=== PATIENT | female | born 1975 | race Caucasian/White ===

== ENCOUNTER 2024-06-25 00:35 | Emergency (ER) | payer OTHER ==
[~2024-06-25] VITALS: Ht 165.1 cm; Wt 72.0 kg
[2024-06-25] MEDS ORDERED: LYRICA100 MG PO (01:10)
[2024-06-25] MEDS ORDERED: TIZANIDINE HCL4 M1 PO (01:10)
[2024-06-25] MEDS ORDERED: TRAMADOL HCL50 MG PO (01:11)
[2024-06-25] MEDS ORDERED: TRAZODONE HCL50 MG (01:12)
[2024-06-25] MEDS ORDERED: BUPROPION XL300 MG PO (01:12)
[2024-06-25] MEDS ORDERED: TOPIRAMATE50 MG PO (01:12)
[2024-06-25 01:13] LABS: BASOPHILS 0.7 % (0-2); EOSINOPHILS 2.1 % (0-6); HEMATOCRIT 36.2 % (35.0-50.0); HEMOGLOBIN 12.2 g/dL (12.0-18.0); LYMPHOCYTES 34.3 % (24-44); MCH 30.1 (27-36); MCHC 33.7 g/dl (30-36); MCV 89.5 fl (81-99); MONOCYTES 7.9 % (0-12); PLATELET COUNT 223 K/uL (140-440); RBC 4.04 M/ul (4.3-5.7)
[2024-06-25] MEDS ORDERED: VITAMIN B121000 MCG PO (01:13)
[2024-06-25] MEDS ORDERED: ZOLOFT25 MG PO (01:15)
[2024-06-25 01:21] LABS: ALBUMIN 3.8 g/dL (3.4-5.0); ALBUMIN/GLOBULIN RATIO 1.15 (1.1-2.4); ANION GAP 8.7 (7-21); BILIRUBIN, TOTAL 0.5 ng/dL (0.2-1.0); BUN/CREATININE RATIO 13.11 (6.0-28.6); CALCIUM 8.8 mg/dL (8.5-10.1); CREATININE, SERUM 1.22 mg/dL (0.55-1.02); POTASSIUM 2.7 mmol/L (3.5-5.1); PROTEIN, TOTAL 7.1 g/dL (6.4-8.2)
[2024-06-25] MEDS ORDERED: POTASSIUM CHLORIDE 10 MEQ TABCR PO ONE (01:45)
[2024-06-25] MEDS ORDERED: K-TAB ER20 MEQ PO (02:42)
[2024-06-25 03:18] VITALS: BP 99/71
--- NOTE | 2024-06-25 19:47 | EKG ---
[facility] [place] [facility] [address] [facility] [place], [place] [address] Signed Normal sinus rhythm Normal ECG No previous ECGs available Confirmed by Carito Fritz MD ([id number]) on 06/25/2024 7:47:33 PM Electronically Signed By: CARITO FRITZ MD 06/25/241946 PATIENT NAME: ROBERT BARBA Electrocardiogram DATE OF : 75 PHYSICIAN: CARITO FRITZ MD REPORT #: [id number] REPORT IS CONFIDENTIAL AND NOT TO BE RELEASED WITHOUT AUTHORIZATION
== END 2024-06-25 03:22 | disposition home or self-care (01) ==
LOC: ED 00:35
PROVIDERS: Emergency Medicine
DX: R42 Dizziness and giddiness (principal); E87.6 Hypokalemia; Z79.899 Other long term (current) drug therapy
CPT/HCPCS: 36415; 70450; 70496; 70498; 80053; 85025; 93005; 93010; 99284-25; A9270; Q9967